=== PATIENT | male | born 1980 | race Caucasian/White ===

== ENCOUNTER → 2017-03-29 | Outpatient (CLI) | payer BC ==
[~2017-03-29] MED LIST: IBUP-1050 PO
--- NOTE | 2017-03-29 15:14 | DIAGNOSTIC IMAGING REPORT ---
HEAD WITHOUT CONTRAST (CT) CT DOSE: 537.48 mGy.cm HISTORY: Mental status change HAMMER, DIZZINESS TECHNIQUE: Multiaxial CT images of the head were performed without the use of intravenous contrast. A dose lowering technique was utilized adhering to the principles of ALARA. Comparison: None. Findings: The paranasal sinuses and mastoid air cells are clear. The calvarium and skull base are intact. The ventricles and sulci are within normal limits. There is no mass, hematoma, midline shift, or acute infarct. Impression: No acute intracranial abnormality. The above report was generated using voice recognition software. It may contain grammatical, syntax or spelling errors. Electronically signed by: Ok Guardado M.D. 03/29/2017 3:12 PM Dictated Date/Time: 03/29/2017 3:12 PM
== END | disposition home or self-care (01) ==
LOC: C.CTS 14:55
PROVIDERS: ATTEND Family Medicine
DX: R51 Headache (principal); R42 Dizziness and giddiness

== ENCOUNTER → 2017-05-04 | Outpatient (CLI) | payer BC ==
[~2017-05-04] MED LIST changes: +OPTIRAY 320 IV PRN
--- NOTE | 2017-05-04 09:00 | DIAGNOSTIC IMAGING REPORT ---
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 A dose lowering technique was utilized adhering to the principles of ALARA. COMPARISON: CT chest 06/21/2016. FINDINGS: Thyroid is homogeneous. No pathologic adenopathy of the chest identified. The heart is normal in size without pericardial effusion. Thoracic aorta is normal in course and caliber without dissection or aneurysm. 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 Imaged great vessels are patent. No pleural effusion or pneumothorax. Mild dependent bibasilar atelectasis. No suspicious pulmonary nodules or masses to suggest metastatic disease. No focal airspace consolidation to suggest pneumonia. The central airways are patent. Imaged upper abdominal structures demonstrate no acute abnormality. Oral contrast is seen within the gastric lumen. Note is made of mild symmetric bilateral gynecomastia. No suspicious lytic or blastic bony lesions identified. There is mild convex left curvature of the midthoracic spine. IMPRESSION: 1. No acute intrathoracic abnormality identified. No evidence of metastatic disease or pathologic adenopathy. 2. Incidental note is made of mild bilateral symmetric gynecomastia. 3. Mild convex left curvature of the midthoracic spine. Electronically signed by: Santosh Gannon M.D. 05/04/2017 8:58 AM Dictated Date/Time: 05/04/2017 8:52 AM
--- NOTE | 2017-05-04 09:08 | DIAGNOSTIC IMAGING REPORT ---
CT OF THE ABDOMEN AND PELVIS WITH CONTRAST CLINICAL HISTORY: Testicular cancer. COMPARISON STUDY: CT of the abdomen and pelvis June 21, 2016. TECHNIQUE: Following IV administration of 93 mL of Optiray-320, axial images of the abdomen and pelvis were obtained from the lung bases to the proximal femurs. Images were reviewed in the axial, sagittal, and coronal planes. IV contrast was administered without complication. A dose lowering technique was utilized adhering to the principles of ALARA. Oral contrast was administered. CT DOSE: 1213.20 mGy.cm FINDINGS: The chest will be reported separately. The liver, adrenal glands, kidneys and pancreas are normal. There is no hydronephrosis. No biliary or pancreatic ductal dilatation is present. The caliber and wall thickness of small and large bowel are normal. The appendix is normal. No abdominal or pelvic lymphadenopathy is present. There are postoperative findings consistent with a right orchiectomy. No suspicious osseous lesion is present. 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 There is a retroaortic left renal vein. IMPRESSION: No evidence of metastatic disease within the abdomen or pelvis. Electronically signed by: Kranthi Rene M.D. 05/04/2017 9:07 AM Dictated Date/Time: 05/04/2017 8:52 AM
== END | disposition home or self-care (01) ==
LOC: C.CTS 08:35
PROVIDERS: ATTEND Urology
DX: Z00.00 Encounter for general adult medical examination without abnormal findings (principal); D29.20 Benign neoplasm of unspecified testis